=== PATIENT | female | born 2005 | race Caucasian/White ===

== ENCOUNTER 2025-08-18 06:58 | Emergency (ER) | payer OTHER ==
[2025-08-18] MEDS ORDERED: HYDROcodone/Acetaminophen 5/325 mg Tablet ONE (10:29)
== END 2025-08-18 11:37 | disposition home or self-care (01) ==
LOC: CSHERS 06:58 → EEVIPCON 06:58 → CSHERS 11:37
DX: N83.202 Unspecified ovarian cyst, left side (principal)
CPT/HCPCS: 76856